=== PATIENT | female | born 1985 | race Caucasian/White ===

== ENCOUNTER 2019-04-19 07:45 | Emergency (ER) | payer OTHER ==
[~2019-04-19] VITALS: Ht 160 cm; Wt 91.2 kg
[2019-04-19 07:55] VITALS: Ht 160 cm; Wt 91.2 kg
[2019-04-19 10:34] VITALS: BP 135/76
== END 2019-04-19 10:34 | disposition home or self-care (01) ==
LOC: ED 07:45
DX: J02.9 Acute pharyngitis, unspecified (principal); R03.0 Elevated blood-pressure reading, without diagnosis of hypertension
CPT/HCPCS: J1100; J1885